=== PATIENT | female | born 1970 | race Caucasian/White ===

== ENCOUNTER → 2016-04-20 | Outpatient (REF) | LOC: WSOH 11:19 | DX: Z01.83 Encounter for blood typing (principal) ==

== ENCOUNTER → 2016-04-28 | Outpatient (REF) | LOC: WSOH 15:45 | DX: Z01.83 Encounter for blood typing (principal) ==

== ENCOUNTER → 2016-07-02 | Outpatient (REF) | LOC: WSOH 15:30 | DX: Z02.89 Encounter for other administrative examinations (principal) ==

== ENCOUNTER → 2016-07-28 | Outpatient (REF) | LOC: WSOH 08:36 | DX: Z00.00 Encounter for general adult medical examination without abnormal findings (principal) ==

== ENCOUNTER → 2016-07-28 | Outpatient (REF) | LOC: WSOH 08:38 | DX: Z00.00 Encounter for general adult medical examination without abnormal findings (principal) ==

== ENCOUNTER → 2017-09-06 | Outpatient (CLI) | payer BC | LOC: MC.RAD 08:54 | DX: Z12.31 Encounter for screening mammogram for malignant neoplasm of breast (principal) ==

== ENCOUNTER → 2018-06-07 | Outpatient (CLI) | payer BC ==
[~2018-06-07] VITALS: Ht 153.7 cm; Wt 79.8 kg
[~2018-06-07] MED LIST: FLONASEALLERGY NS; PAXIL 20MG20 MG PO
[2018-06-07 10:10] VITALS: BP 140/86; PULSE 66
== END ==
LOC: LIGHT 08:15
DX: R73.01 Impaired fasting glucose (principal); E78.5 Hyperlipidemia, unspecified; E66.01 Morbid (severe) obesity due to excess calories; Z68.33 Body mass index [BMI] 33.0-33.9, adult; Z71.3 Dietary counseling and surveillance
CPT/HCPCS: G0463

== ENCOUNTER → 2018-06-20 | Outpatient (CLI) | payer BC | LOC: LIGHT 08:24 | DX: R73.01 Impaired fasting glucose (principal); E78.5 Hyperlipidemia, unspecified; E66.01 Morbid (severe) obesity due to excess calories; Z68.33 Body mass index [BMI] 33.0-33.9, adult; Z71.3 Dietary counseling and surveillance ==

== ENCOUNTER → 2018-07-13 | Outpatient (CLI) | payer BC ==
[~2018-07-13] VITALS: Ht 153.7 cm; Wt 79.6 kg
[2018-07-13 08:53] VITALS: BP 138/94; PULSE 64
== END ==
LOC: LIGHT 08:46
DX: R73.01 Impaired fasting glucose (principal); E78.5 Hyperlipidemia, unspecified; E66.01 Morbid (severe) obesity due to excess calories; Z68.29 Body mass index [BMI] 29.0-29.9, adult; Z71.3 Dietary counseling and surveillance
CPT/HCPCS: G0463

== ENCOUNTER → 2018-07-17 | Outpatient (CLI) | payer BC | LOC: LIGHT 08:58 | DX: R73.01 Impaired fasting glucose (principal); E78.5 Hyperlipidemia, unspecified; E66.01 Morbid (severe) obesity due to excess calories; Z68.29 Body mass index [BMI] 29.0-29.9, adult; Z71.3 Dietary counseling and surveillance ==

== ENCOUNTER → 2018-08-24 | Outpatient (CLI) | payer BC ==
[~2018-08-24] VITALS: Ht 153.7 cm; Wt 79.4 kg
[2018-08-24 08:44] VITALS: BP 130/72; PULSE 78
== END ==
LOC: LIGHT 08:39
DX: R73.01 Impaired fasting glucose (principal); E78.5 Hyperlipidemia, unspecified; E66.01 Morbid (severe) obesity due to excess calories; Z68.33 Body mass index [BMI] 33.0-33.9, adult; Z71.3 Dietary counseling and surveillance
CPT/HCPCS: G0463

== ENCOUNTER → 2018-09-21 | Outpatient (CLI) | payer BC ==
[~2018-09-21] VITALS: Ht 153.7 cm; Wt 79.6 kg
[2018-09-21 11:04] VITALS: BP 132/84; PULSE 67
== END ==
LOC: LIGHT 10:54
DX: R73.01 Impaired fasting glucose (principal); E78.5 Hyperlipidemia, unspecified; E66.01 Morbid (severe) obesity due to excess calories; Z68.33 Body mass index [BMI] 33.0-33.9, adult; Z71.3 Dietary counseling and surveillance
CPT/HCPCS: G0463

== ENCOUNTER 2018-11-05 19:33 | Emergency (ER) | payer BC ==
[~2018-11-05] VITALS: Ht 152.4 cm; Wt 80.5 kg
[2018-11-05 19:39] VITALS: BP 166/89; TEMP 98.3
[2018-11-05 21:05] VITALS: PULSE 85
== END 2018-11-05 21:05 | disposition home or self-care (01) ==
LOC: COL.ER 19:33
DX: S61.251A Open bite of left index finger without damage to nail, initial encounter (principal); F32.9 Major depressive disorder, single episode, unspecified; Z88.2 Allergy status to sulfonamides; Z79.51 Long term (current) use of inhaled steroids; W55.01XA Bitten by cat, initial encounter

== ENCOUNTER 2018-11-08 17:37 | Outpatient (RCR) | payer BC ==
[2018-11-08 17:50] VITALS: BP 177/89; PULSE 74; TEMP 98.3
== END 2019-02-06 ==
LOC: COL.ER
DX: Z23 Encounter for immunization (principal); Z20.3 Contact with and (suspected) exposure to rabies

== ENCOUNTER → 2019-09-28 | Outpatient (CLI) | payer BC | LOC: MC.RAD 08:28 | DX: Z12.31 Encounter for screening mammogram for malignant neoplasm of breast (principal); N63.21 Unspecified lump in the left breast, upper outer quadrant ==

== ENCOUNTER → 2019-10-04 | Outpatient (CLI) | payer BC | LOC: MC.RAD 08:29 | DX: N60.12 Diffuse cystic mastopathy of left breast (principal) ==

== ENCOUNTER → 2020-03-06 | Outpatient (CLI) | payer BC | LOC: COL.RAD 07:17 | DX: R74.8 Abnormal levels of other serum enzymes (principal) ==

== ENCOUNTER → 2020-04-22 | Outpatient (CLI) | payer BC | LOC: MC.RAD 12:57 | DX: N60.02 Solitary cyst of left breast (principal) ==